=== PATIENT | male | born 1965 | race Caucasian/White ===

== ENCOUNTER 2017-08-29 20:32 | Inpatient (IN) | payer OTHER ==
[~2017-08-29] VITALS: Ht 177.8 cm; Wt 81.6 kg
[2017-09-02] MEDS ORDERED: TOPROL XL25 M1 PO (11:21)
[2017-09-02] MEDS ORDERED: Lantus 1000 UNITS/10 SUBCUTANEO (11:21)
[2017-09-02] MEDS ORDERED: HumaLOG 100 UNIT/1 M SUBCUTANEO (11:21)
[2017-09-02] MEDS ORDERED: CEPHALEXIN500 M1 PO (11:22)
== END 2017-09-02 13:41 | disposition home or self-care (01) | DRG 622 ==
LOC: ER 20:32 → MEDI 08-30 08:57
PROC: 4A033R1 Measurement of Arterial Saturation, Peripheral, Percutaneous Approach (ICD-10-PCS; 2017-08-30)
PROC: 0JBQ0ZZ Excision of Right Foot Subcutaneous Tissue and Fascia, Open Approach (ICD-10-PCS; principal; 2017-08-31)
DX: E10.621 Type 1 diabetes mellitus with foot ulcer (principal); A41.9 Sepsis, unspecified organism; L97.518 Non-pressure chronic ulcer of other part of right foot with other specified severity; E10.65 Type 1 diabetes mellitus with hyperglycemia; E10.3213 Type 1 diabetes mellitus with mild nonproliferative diabetic retinopathy with macular edema, bilateral; N17.8 Other acute kidney failure; B95.61 Methicillin susceptible Staphylococcus aureus infection as the cause of diseases classified elsewhere

== ENCOUNTER 2018-03-26 09:41 | Outpatient (CLI) | payer OTHER ==
[~2018-03-26 09:41] MED LIST: CEPHALEXIN500 M1 PO; HumaLOG 100 UNIT/1 M SUBCUTANEO; Lantus 1000 UNITS/10 SUBCUTANEO; TOPROL XL25 M1 PO
== END 2018-03-26 16:28 | disposition home or self-care (01) ==
LOC: RAD 09:41
DX: I11.0 Hypertensive heart disease with heart failure (principal)

== ENCOUNTER 2018-04-05 15:37 | Outpatient (CLI) | payer OTHER ==
[~2018-04-05] VITALS: Ht 177.8 cm; Wt 91.6 kg
== END 2018-04-05 16:00 | disposition home or self-care (01) ==
LOC: OFIC 805 15:37
DX: H91.8X3 Other specified hearing loss, bilateral (principal)

== ENCOUNTER 2018-04-08 07:17 | Outpatient (CLI) | payer OTHER | END 2018-04-08 07:31 | disposition home or self-care (01) | LOC: SONOGRAMA 07:17 → MAMO-SONO 04-09 07:45 | DX: N28.89 Other specified disorders of kidney and ureter (principal) ==

== ENCOUNTER 2018-04-28 10:58 | Outpatient (CLI) | payer OTHER | END 2018-04-28 16:54 | disposition home or self-care (01) | LOC: RAD 10:58 | DX: M79.631 Pain in right forearm (principal) ==

== ENCOUNTER → 2018-05-13 | Outpatient (CLI) | payer OTHER | END | disposition home or self-care (01) | LOC: RAD 12:22 | DX: M25.551 Pain in right hip (principal); M25.552 Pain in left hip ==

== ENCOUNTER 2018-05-18 08:23 | Outpatient (CLI) | payer OTHER | END 2018-05-18 08:43 | disposition home or self-care (01) | LOC: NUCLEAR 08:23 | DX: M25.561 Pain in right knee (principal); M24.811 Other specific joint derangements of right shoulder, not elsewhere classified | CPT/HCPCS: 78315; A9503 ==

== ENCOUNTER 2018-08-26 12:02 | Outpatient (CLI) | payer OTHER | END 2018-08-26 12:04 | disposition home or self-care (01) | LOC: RAD 12:02 | DX: R05 Cough (principal) ==